=== PATIENT | female | born 1960 | race Caucasian/White ===

== ENCOUNTER → 2023-01-14 | Outpatient (CLI) | payer OTHER ==
[~2023-01-14] MED LIST: ATOR10; TRAZ50
[2023-01-19 14:40] LABS: Stool Occult Bld Immuno 1 Negative (NEGATIVE)
[2023-01-19 14:41] LABS: Stool Occult Bld Immuno 2 Negative (NEGATIVE); Stool Occult Bld Immuno 3 Negative (NEGATIVE)
== END ==
LOC: LAB SHORT 11:43 → LAB 11:43
PROVIDERS: Nurse Practitioner Family
DX: K92.1 Melena (principal); R10.9 Unspecified abdominal pain
CPT/HCPCS: G0328

== ENCOUNTER → 2025-05-11 | Outpatient (CLI) | payer OTHER | LOC: LAB 15:23 → LAB SHORT 15:23 | DX: Z11.59 Encounter for screening for other viral diseases (principal) | CPT/HCPCS: 87081 ==